=== PATIENT | female | born 1995 | race Two or more races ===

== ENCOUNTER 2021-12-05 07:56 | Observation (INO) | payer MEDICAID ==
[~2021-12-05] VITALS: Ht 152.4 cm; Wt 76.2 kg
[2021-12-05] MEDS: TERBUTALINE SULFATE 1 MG/ML 1ML VIAL SC SCH ×2 (12:37→13:02)
[2021-12-05] MEDS ORDERED: PREN-96 PO (16:18)
[2021-12-05] MEDS ORDERED: NIF10C PO (16:18)
== END 2021-12-05 16:39 | disposition home or self-care (01) ==
LOC: LDRP 11:21 → UNDODISOB 12:07
PROVIDERS: ADMIT Obstetrics & Gynecology; ATTEND Obstetrics & Gynecology
DX: O40.3XX0 Polyhydramnios, third trimester, not applicable or unspecified (principal); Z3A.32 32 weeks gestation of pregnancy
CPT/HCPCS: 59025; 76818; 81002; 94760; 96372; G0378; J3105

== ENCOUNTER 2021-12-08 09:19 | Observation (INO) | payer MEDICAID ==
[~2021-12-08 09:19] MED LIST: NIF10C PO; PREN-96 PO
== END 2021-12-08 11:26 | disposition home or self-care (01) ==
LOC: LDRP 09:19
PROVIDERS: ADMIT Obstetrics & Gynecology Obstetrics; ATTEND Obstetrics & Gynecology Obstetrics
DX: O40.3XX0 Polyhydramnios, third trimester, not applicable or unspecified (principal); Z3A.32 32 weeks gestation of pregnancy
CPT/HCPCS: 59025; 76818; 94760; G0378

== ENCOUNTER 2021-12-10 08:14 | Observation (INO) | payer MEDICAID | END 2021-12-10 13:35 | disposition home or self-care (01) | LOC: LDRP 11:30 | PROVIDERS: ADMIT Obstetrics & Gynecology; ATTEND Obstetrics & Gynecology | DX: O40.3XX0 Polyhydramnios, third trimester, not applicable or unspecified (principal); Z3A.33 33 weeks gestation of pregnancy | CPT/HCPCS: 59025; 76818; 81002; 94760; G0378 ==

== ENCOUNTER 2021-12-13 08:02 | Observation (INO) | payer MEDICAID | END 2021-12-13 12:45 | disposition home or self-care (01) | LOC: LDRP 10:45 | PROVIDERS: ADMIT Obstetrics & Gynecology; ATTEND Obstetrics & Gynecology | DX: O40.3XX0 Polyhydramnios, third trimester, not applicable or unspecified (principal); Z3A.33 33 weeks gestation of pregnancy | CPT/HCPCS: 59025; 76818; 81002; 94760; G0378 ==

== ENCOUNTER 2021-12-17 08:07 | Observation (INO) | payer MEDICAID | END 2021-12-17 13:51 | disposition home or self-care (01) | LOC: LDRP 11:55 | PROVIDERS: ADMIT Obstetrics & Gynecology; ATTEND Obstetrics & Gynecology | DX: O40.3XX0 Polyhydramnios, third trimester, not applicable or unspecified (principal); Z3A.34 34 weeks gestation of pregnancy | CPT/HCPCS: 59025; 76818; 81002; 94760; G0378 ==

== ENCOUNTER 2021-12-20 11:00 | Observation (INO) | payer MEDICAID | END 2021-12-20 13:20 | disposition home or self-care (01) | LOC: LDRP 11:00 | PROVIDERS: ADMIT Obstetrics & Gynecology; ATTEND Obstetrics & Gynecology | DX: O40.3XX0 Polyhydramnios, third trimester, not applicable or unspecified (principal); Z3A.34 34 weeks gestation of pregnancy | CPT/HCPCS: 59025; 76818; 81002; 94760; G0378 ==

== ENCOUNTER 2021-12-25 10:30 | Observation (INO) | payer MEDICAID | END 2021-12-25 11:48 | disposition home or self-care (01) | LOC: LDRP 10:30 | PROVIDERS: ADMIT Obstetrics & Gynecology; ATTEND Obstetrics & Gynecology | DX: O40.3XX0 Polyhydramnios, third trimester, not applicable or unspecified (principal); Z3A.35 35 weeks gestation of pregnancy | CPT/HCPCS: 59025; 76818; 81002; 94760; G0378 ==

== ENCOUNTER 2021-12-31 07:24 | Observation (INO) | payer MEDICAID | END 2021-12-31 09:44 | disposition home or self-care (01) | LOC: LDRP 08:00 | PROVIDERS: ADMIT Obstetrics & Gynecology Obstetrics; ATTEND Obstetrics & Gynecology Obstetrics | DX: O40.3XX0 Polyhydramnios, third trimester, not applicable or unspecified (principal); Z3A.36 36 weeks gestation of pregnancy | CPT/HCPCS: 59025; 76818; 81002; 94760; G0378 ==

== ENCOUNTER 2022-01-03 19:10 | Observation (INO) | payer MEDICAID ==
[~2022-01-03] VITALS: Ht 152.4 cm; Wt 76.2 kg
== END 2022-01-03 20:57 | disposition home or self-care (01) ==
LOC: LDRP 19:10
PROVIDERS: ADMIT Obstetrics & Gynecology; ATTEND Obstetrics & Gynecology
DX: O40.3XX0 Polyhydramnios, third trimester, not applicable or unspecified (principal); Z3A.36 36 weeks gestation of pregnancy
CPT/HCPCS: 76818; G0378; 59025; 81002

== ENCOUNTER 2022-01-07 08:32 | Observation (INO) | payer MEDICAID | END 2022-01-07 09:39 | disposition home or self-care (01) | LOC: LDRP 08:32 → UNDOADMOB 08:32 → LDRP 08:54 → UNDODISOB 09:39 | PROVIDERS: ADMIT Obstetrics & Gynecology Obstetrics; ATTEND Obstetrics & Gynecology Obstetrics | DX: O40.3XX0 Polyhydramnios, third trimester, not applicable or unspecified (principal); Z3A.37 37 weeks gestation of pregnancy | CPT/HCPCS: 59025; 76818; 81002; 94760; G0378 ==

== ENCOUNTER 2022-01-15 07:19 | Observation (INO) | payer MEDICAID | END 2022-01-15 15:15 | disposition home or self-care (01) | LOC: LDRP 12:54 → UNDOADMOB 12:55 → LDRP 12:55 | PROVIDERS: ADMIT Obstetrics & Gynecology; ATTEND Obstetrics & Gynecology | DX: O24.419 Gestational diabetes mellitus in pregnancy, unspecified control (principal); O62.9 Abnormality of forces of labor, unspecified; Z3A.38 38 weeks gestation of pregnancy | CPT/HCPCS: 59025; 76818; 81002; 94760; G0378 ==

== ENCOUNTER 2022-01-18 07:48 | Observation (INO) | payer MEDICAID | END 2022-01-18 11:05 | disposition home or self-care (01) | LOC: LDRP 09:30 → UNDOADMOB 09:30 → LDRP 09:33 → UNDODISOB 11:05 | PROVIDERS: ADMIT Obstetrics & Gynecology; ATTEND Obstetrics & Gynecology | DX: O40.3XX0 Polyhydramnios, third trimester, not applicable or unspecified (principal); Z3A.38 38 weeks gestation of pregnancy | CPT/HCPCS: 59025; 76818; 81002; 94760; G0378 ==

== ENCOUNTER 2022-01-22 09:29 | Observation (INO) | payer MEDICAID | END 2022-01-22 16:46 | disposition home or self-care (01) | LOC: LDRP 13:56 → UNDOADMOB 14:00 | PROVIDERS: ADMIT Obstetrics & Gynecology; ATTEND Obstetrics & Gynecology | DX: O40.3XX0 Polyhydramnios, third trimester, not applicable or unspecified (principal); O36.63X0 Maternal care for excessive fetal growth, third trimester, not applicable or unspecified; O62.9 Abnormality of forces of labor, unspecified; O99.891 Other specified diseases and conditions complicating pregnancy; M25.551 Pain in right hip; M79.604 Pain in right leg; M25.552 Pain in left hip; M79.605 Pain in left leg; Z3A.39 39 weeks gestation of pregnancy | CPT/HCPCS: 59025; 76818; 81002; 94760; G0378 ==

== ENCOUNTER 2022-01-25 08:15 | Inpatient (IN) | payer MEDICAID ==
[2022-01-23 13:00] LABS: Basophils # (auto) 0 10 ^3/uL (0-0.2); Basophils % (auto) 0.4 % (0.0-2.0); Eosinophils # (auto) 0.1 10 ^3/uL (0-0.8); Eosinophils % (auto) 0.8 % (0.0-7.0); Hematocrit 39.3 % (36.0-46.0); Hemoglobin 13.1 g/dL (12.2-16.2); Lymphocytes # (auto) 1.2 10 ^3/uL (0.4-5.4); Lymphocytes % (auto) 16.1 % (10.0-50.0); Mean Corpuscular Hemoglobin 30.8 pg (28.0-32.0); Mean Corpuscular Hgb Conc. 33.2 g/dL (32.0-36.0); Mean Corpuscular Volume 92.8 fL (80.0-100.0); Monocytes # (auto) 0.5 10 ^3/uL (0-1.3); Monocytes % (auto) 6.1 % (0.0-12.0); Neutrophils # (auto) 5.7 10 ^3/uL (1.6-8.6); Neutrophils % (auto) 76.6 % (37.0-80.0); Nucleated Red Blood Cells % 0.1 %; Red Blood Cells 4.23 10^6/uL (4.0-5.20); Red Cell Distribution Width 13.5 % (11.8-14.3); White Blood Cell 7.5 10^3/uL (4.4-10.8)
[2022-01-23 13:08] LABS: Alcohol, Urine < 3.0 mg/dL (0-10); Amphetamine Screen, Urine NEGATIVE (NEGATIVE); Barbiturate Scree,Urine NEGATIVE (NEGATIVE); Benzodiazephine Screen, Urine NEGATIVE (NEGATIVE); Cannabinoid Screen, Urine NEGATIVE (NEGATIVE); Cocaine Screen, Urine NEGATIVE (NEGATIVE); Opiate Scree,Urine NEGATIVE (NEGATIVE); Phencyclidine Screen, Urine NEGATIVE (NEGATIVE)
[2022-01-23 13:14] LABS: INR 0.98 (0.9-1.15); Partial Thromboplastin Time 27.6 sec (23.6-33.0)
[2022-01-23 13:19] LABS: BUN/Creatinine Ratio 16.3; Calcium 8.7 mg/dL (8.5-10.1); Potassium 4.1 mmol/L (3.5-5.1)
[2022-01-23 13:21] LABS: Bilirubin, Total 0.5 mg/dL (0.2-1.0); Total Protein 6.7 g/dL (6.4-8.2)
[2022-01-23 13:56] LABS: Urine Bacteria NONE SEEN /hpf (None Seen); Urine Blood Negative /uL (Negative); Urine Specific Gravity 1.009 (1.001-1.035); Urine WBC 1 /hpf (0 - 5)
[2022-01-24 08:06] LABS: RPR Non Reactive (Non Reactive)
[~2022-01-25] VITALS: Ht 152.4 cm; Wt 78.0 kg
[~2022-01-25 08:15] MED LIST changes: -NIF10C PO
[2022-01-26] VITALS (21 sets, daily range): BP systolic 87–111; BP diastolic 41–70
[2022-01-26] MEDS ORDERED: PHISODERM TOP SOLN 240ML BTL TOP PRN (04:45)
[2022-01-26] MEDS ORDERED: DERMOPLAST 60ML BOTTLE TOP PRN (04:45)
[2022-01-26] MEDS ORDERED: WITCH HAZEL-GLYCERIN PAD TOP PRN (04:45)
[2022-01-26] MEDS: LACTATED RINGER'S 1,000 ML IV SCH ×3 (05:09→18:21)
[2022-01-26] MEDS ORDERED: ceFAZolin 1GM/50ML 50 ML IV SCH ×2 (06:00→08:30)
[2022-01-26 06:02] LABS: Urine Bacteria FEW /hpf (None Seen); Urine Blood Negative /uL (Negative); Urine Specific Gravity 1.015 (1.001-1.035); Urine WBC 8 /hpf (0 - 5)
[2022-01-26 06:29] LABS: Alcohol, Urine < 3.0 mg/dL (0-10); Amphetamine Screen, Urine NEGATIVE (NEGATIVE); Barbiturate Scree,Urine NEGATIVE (NEGATIVE); Benzodiazephine Screen, Urine NEGATIVE (NEGATIVE); Cannabinoid Screen, Urine NEGATIVE (NEGATIVE); Cocaine Screen, Urine NEGATIVE (NEGATIVE); Opiate Scree,Urine NEGATIVE (NEGATIVE); Phencyclidine Screen, Urine NEGATIVE (NEGATIVE)
[2022-01-26] MEDS ORDERED: MORPHINE SULF PF 5 MG/10 ML VIAL ONE (07:07)
[2022-01-26] MEDS ORDERED: fentaNYL CITRATE 100 MCG/2 ML VL ONE (07:08)
[2022-01-26 07:19] LABS: Albumin 2.5 g/dL (3.4-5.0); Potassium 3.7 mmol/L (3.5-5.1)
[2022-01-26 07:21] LABS: BUN/Creatinine Ratio 11.1
[2022-01-26 07:27] LABS: Bilirubin, Total 0.5 mg/dL (0.2-1.0); Total Protein 5.8 g/dL (6.4-8.2)
[2022-01-26 07:31] LABS: Basophils # (auto) 0 10 ^3/uL (0-0.2); Basophils % (auto) 0.4 % (0.0-2.0); Eosinophils # (auto) 0.1 10 ^3/uL (0-0.8); Hematocrit 35.3 % (36.0-46.0); INR 0.99 (0.9-1.15); Lymphocytes # (auto) 1.4 10 ^3/uL (0.4-5.4); Lymphocytes % (auto) 20.1 % (10.0-50.0); Mean Corpuscular Hemoglobin 31.8 pg (28.0-32.0); Mean Corpuscular Hgb Conc. 33.9 g/dL (32.0-36.0); Monocytes # (auto) 0.4 10 ^3/uL (0-1.3); Monocytes % (auto) 5.8 % (0.0-12.0); Neutrophils % (auto) 72.7 % (37.0-80.0); Nucleated Red Blood Cells % 0.1 %; Partial Thromboplastin Time 26.8 sec (23.6-33.0); Red Blood Cells 3.76 10^6/uL (4.0-5.20); Red Cell Distribution Width 13.7 % (11.8-14.3); White Blood Cell 6.9 10^3/uL (4.4-10.8)
[2022-01-26] MEDS ORDERED: CARBOPROST TROMETHAMINE 250 MCG/1ML VIAL IM ONE (08:07)
[2022-01-26] MEDS ORDERED: LACT. RINGERS/OXYTOCIN 20UNITS 1,000 ML IV ONE (08:30)
[2022-01-26] MEDS ORDERED: ONDANSETRON HCL 4 MG/2 ML VIAL IV PRN ×2 (08:30→09:00)
[2022-01-26] MEDS ORDERED: GUM (CHEWING) 1 GUM CHEW CHEW ONE (08:30)
[2022-01-26] MEDS ORDERED: ONDANSETRON HCL 4 MG/2 ML VIAL ONE (08:54)
[2022-01-26] MEDS ORDERED: NALBUPHINE HCL 10 MG/1ml INJECTION SUBCUT ONE (09:00)
[2022-01-26] MEDS ORDERED: ALBUMIN 5% 500 ML IV ONE (09:15)
[2022-01-26] MEDS ORDERED: ALBUMIN 5% 250 ML IV ONE ×2 (09:30)
[2022-01-26] MEDS: ACETAMINOPHEN IV 1000 MG/100ML (10MG/ML) IV PRN ×2 (11:20→21:00)
[2022-01-26] MEDS ORDERED: HYDR-4902 PO (13:14)
[2022-01-26] MEDS ORDERED: IBUP800T27 PO (13:14)
[2022-01-26] MEDS ORDERED: DOCU-94 PO (13:14)
[2022-01-26] MEDS: ceFAZolin 1GM/50ML 50 ML IV SCH (19:58)
[2022-01-26 21:49] LABS: Basophils # (auto) 0 10 ^3/uL (0-0.2); Basophils % (auto) 0.3 % (0.0-2.0); Eosinophils # (auto) 0 10 ^3/uL (0-0.8); Eosinophils % (auto) 0.4 % (0.0-7.0); Hemoglobin 10.1 g/dL (12.2-16.2); Lymphocytes # (auto) 1.2 10 ^3/uL (0.4-5.4); Lymphocytes % (auto) 12.9 % (10.0-50.0); Mean Corpuscular Hemoglobin 31.7 pg (28.0-32.0); Mean Corpuscular Hgb Conc. 33.9 g/dL (32.0-36.0); Mean Corpuscular Volume 93.6 fL (80.0-100.0); Monocytes # (auto) 0.6 10 ^3/uL (0-1.3); Monocytes % (auto) 6.1 % (0.0-12.0); Neutrophils # (auto) 7.5 10 ^3/uL (1.6-8.6); Neutrophils % (auto) 80.3 % (37.0-80.0); Nucleated Red Blood Cells % 0.1 %; Red Cell Distribution Width 13.3 % (11.8-14.3); White Blood Cell 9.3 10^3/uL (4.4-10.8)
[2022-01-27] VITALS (17 sets, daily range): BP systolic 78–103; BP diastolic 45–66
[2022-01-27] MEDS: ceFAZolin 1GM/50ML 50 ML IV SCH ×2 (03:48→12:11)
[2022-01-27] MEDS: LACTATED RINGER'S 1,000 ML IV SCH (04:45)
[2022-01-27] MEDS ORDERED: BISACODYL 10 MG RECT SUPP PR PRN (06:15)
[2022-01-27] MEDS ORDERED: HYDROcodone-ACET 5/325MG TAB PO PRN (06:15)
[2022-01-27 08:06] LABS: RPR Non Reactive (Non Reactive)
[2022-01-27 08:53] LABS: Basophils # (auto) 0 10 ^3/uL (0-0.2); Basophils % (auto) 0.3 % (0.0-2.0); Eosinophils # (auto) 0 10 ^3/uL (0-0.8); Eosinophils % (auto) 0.3 % (0.0-7.0); Hematocrit 31.9 % (36.0-46.0); Hemoglobin 10.7 g/dL (12.2-16.2); Mean Corpuscular Hemoglobin 31.6 pg (28.0-32.0); Mean Corpuscular Hgb Conc. 33.5 g/dL (32.0-36.0); Mean Corpuscular Volume 94.2 fL (80.0-100.0); Monocytes # (auto) 0.5 10 ^3/uL (0-1.3); Monocytes % (auto) 5.2 % (0.0-12.0); Neutrophils # (auto) 7.9 10 ^3/uL (1.6-8.6); Neutrophils % (auto) 83.2 % (37.0-80.0); Red Blood Cells 3.39 10^6/uL (4.0-5.20); Red Cell Distribution Width 13.7 % (11.8-14.3); White Blood Cell 9.5 10^3/uL (4.4-10.8)
[2022-01-27] MEDS: HYDROcodone-ACET 5/325MG TAB PO PRN ×2 (09:20→18:53)
[2022-01-27] MEDS: DOCUSATE CALCIUM 240 MG CAP PO SCH (10:09)
[2022-01-27] MEDS: DOCUSATE SOD 100 MG CAP PO SCH ×2 (10:10→21:54)
[2022-01-27] MEDS: SIMETHICONE 80 MG CHEWABLE TABLET PO SCH ×3 (12:11→21:54)
[2022-01-28] MEDS: IBUPROFEN 800 MG TAB PO PRN ×2 (02:51→13:39)
[2022-01-28 03:17] VITALS: BP 110/63
[2022-01-28] MEDS: SIMETHICONE 80 MG CHEWABLE TABLET PO SCH ×2 (05:57→13:39)
[2022-01-28 07:30] VITALS: BP 110/61
[2022-01-28 11:30] VITALS: BP 116/74
[2022-01-28] MEDS: DOCUSATE CALCIUM 240 MG CAP PO SCH (13:39)
[2022-01-28] MEDS: DOCUSATE SOD 100 MG CAP PO SCH (13:39)
[2022-01-28 15:10] VITALS: BP 104/60
== END 2022-01-28 14:00 | disposition home or self-care (01) | DRG 540 ==
LOC: EDSTATUS 08:15 → LDRP 01-26 04:34
PROVIDERS: ADMIT Obstetrics & Gynecology; ATTEND Obstetrics & Gynecology
PROC: 10D00Z1 Extraction of Products of Conception, Low, Open Approach (ICD-10-PCS; principal; 2022-01-26 07:37)
DX: O36.63X0 Maternal care for excessive fetal growth, third trimester, not applicable or unspecified (principal); R71.0 Precipitous drop in hematocrit; O75.89 Other specified complications of labor and delivery; Z37.0 Single live birth; Z3A.39 39 weeks gestation of pregnancy; Z90.49 Acquired absence of other specified parts of digestive tract; Z20.822 Contact with and (suspected) exposure to COVID-19
CPT/HCPCS: 36415; 59025; 80053; 80307; 81001; 81002; 82948; 85025; 85610; 85730; 86592; 86850; 86900; 86901; 94760; 94762; 96360; 96361; 96365; 96366; G0378; J0131; J0690; J2405; J2590